=== PATIENT | female | born 2000 | race Two or more races ===

== ENCOUNTER 2019-10-31 18:00 | Inpatient (IN) | payer MEDICAID ==
[~2019-10-31] VITALS: Ht 152.4 cm; Wt 45.5 kg
--- NOTE | 2019-10-31 18:09 | NUR ---
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
--- NOTE | 2019-10-31 18:36 | NUR ---
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
[2019-10-31] MEDS ORDERED: AMIT50TA PO (18:45)
--- NOTE | 2019-10-31 18:45 | NUR ---
PATIENT COMES IN TODAY WITH HER MOTHER FOR CYCLICAL VOMITING THAT STARTED 10 DAYS AGO. PATIENT WAS ADMITTED TO [facility] AND DISHCARGED 2 DAYS AGO WITH NO RELIEF. PATIENT IS ACTIVELY DRY HEAVING DURING ASSESSMENT, MOTHER IS ANSWERING ALL QUESTIONS.
[2019-10-31] MEDS ORDERED: SODIUM CHLORIDE 0.9% 1,000ML IVBOLUS ONE (19:30)
[2019-10-31] MEDS ORDERED: ONDANSETRON 2MG/ML, 2ML IVPush ONE (19:30)
[2019-10-31] MEDS ORDERED: KETOROLAC 30 MG/1 ML IVPush ONE (19:30)
[2019-10-31] MEDS ORDERED: SODIUM CHLORIDE FLUSH 10ML SYR IVF ONE (19:30)
[2019-10-31] MEDS ORDERED: ONDA4TAB7 PO (19:31)
[2019-10-31] MEDS ORDERED: PROM12.554 PR (19:31)
[2019-10-31] MEDS ORDERED: KETOROLAC 30 MG/1 ML ONE (19:47)
[2019-10-31] MEDS ORDERED: ONDANSETRON 2MG/ML, 2ML ONE (19:47)
[2019-10-31 19:55] LABS: BASOPHILS # (AUTO) 0.01 x10^3/uL (0-0.1); BASOPHILS % (AUTO) 0 % (0-1); EOSINOPHILS % (AUTO) 0 % (1-7); LYMPHOCYTES # (AUTO) 1.49 x10^3/uL (1-3.4); LYMPHOCYTES % (AUTO) 10 % (22-44); MD NO; MEAN CORPUSCULAR HEMOGLOBIN 32.1 pg (27.0-34.8); MEAN CORPUSCULAR HGB CONC 33.2 g/dL (32.4-35.8); MEAN CORPUSCULAR VOLUME 96.6 fL (80-100); MEAN PLATELET VOLUME 7.7 fL (7.4-10.4); MONOCYTES % (AUTO) 4 % (2-9); NEUTROPHILS # (AUTO) 12.55 x10^3/uL (1.8-6.8); NEUTROPHILS % (AUTO) 86 % (42-75); PLATELET COUNT 317 x10^3/uL (130-400); RED BLOOD COUNT 4.58 x10^6/uL (3.82-5.3); RED CELL DISTRIBUTION WIDTH 13.4 % (9.6-15.2)
--- NOTE | 2019-10-31 19:56 | NUR ---
PT ROLLING AROUND ON GURNEY IN PAIN, MOTHER AT BEDSIDE. PT SCREAMING FOR MEDS. IV FLUIDS STARTED AND PT MEDICATED PER EMAR. VSS AND WILL CONT TO MONITOR.
[2019-10-31 19:59] LABS: ALANINE AMINOTRANSFERASE 19 U/L (12-78); ALBUMIN 4.6 g/dL (3.4-5.0); ANION GAP 10 mmol/L (5-15); CALCIUM 9.3 mg/dL (8.5-10.1); CHLORIDE 106 mmol/L (98-107); CREATININE 0.92 mg/dL (0.55-1.02)
[2019-10-31 20:03] LABS: ALKALINE PHOSPHATASE 93 U/L (45-117); BILIRUBIN,TOTAL 0.3 mg/dL (0.2-1.0); TOTAL PROTEIN 8.7 g/dL (6.4-8.2)
--- NOTE | 2019-10-31 21:14 | NUR ---
PT PROVIDED WATER FOR PO CHALLENGE, PT YELLING AT RN "I NEED MORE MEDS", "I'M GOING TO [facility], THEY ARE FASTER". PT AND MOTHER ASKING FOR PT TO BE ADMITTED. PT AND MOTHER INFORMED THAT PT CHART IS UP FOR RECHECK AND INSTRUCTED PT ON PO CHALLENGE.
[2019-10-31] MEDS ORDERED: DIAZEPAM 5 MG/ML, 2ML IV ONE (21:19)
[2019-10-31] MEDS ORDERED: DIAZEPAM 5 MG/ML, 2ML ONE (21:25)
[2019-10-31] MEDS ORDERED: PROMETHAZINE 25 MG/ML, 1ML IM ONE (23:30)
[2019-10-31] MEDS: LORazepam 2 MG/ML, 1ML IVPush PRN (23:58)
[2019-10-31] MEDS: KETOROLAC 30 MG/1 ML IVPush PRN (23:58)
[2019-11-01] MEDS ORDERED: ONDANSETRON 2MG/ML, 2ML IVPush PRN
[2019-11-01] MEDS: LACTATED RINGERS 1,000 ML IV SCH ×3 (00:15→23:11)
[2019-11-01] MEDS: KETOROLAC 30 MG/1 ML IVPush PRN ×3 (05:44→18:25)
[2019-11-01 08:43] VITALS: BP 101/65
[2019-11-01 14:43] VITALS: BP 115/76
[2019-11-01] MEDS: LORazepam 2 MG/ML, 1ML IVPush PRN (18:25)
[2019-11-01 19:11] VITALS: BP 117/77
[2019-11-01] MEDS: AMITRIPTYLINE 50 MG TABLET PO SCH (20:08)
[2019-11-02 00:09] VITALS: BP 116/75
[2019-11-02] MEDS: KETOROLAC 30 MG/1 ML IVPush PRN ×2 (00:53→18:37)
[2019-11-02] MEDS: LORazepam 2 MG/ML, 1ML IVPush PRN ×2 (00:59→16:59)
[2019-11-02 04:47] LABS: BASOPHILS % (AUTO) 0 % (0-1); MD NO; PLATELET COUNT 221 x10^3/uL (130-400)
[2019-11-02 04:53] LABS: BASOPHILS # (AUTO) 0.02 x10^3/uL (0-0.1); EOSINOPHILS % (AUTO) 2 % (1-7); LYMPHOCYTES # (AUTO) 2.91 x10^3/uL (1-3.4); LYMPHOCYTES % (AUTO) 45 % (22-44); MEAN CORPUSCULAR HEMOGLOBIN 31.9 pg (27.0-34.8); MEAN CORPUSCULAR HGB CONC 32.8 g/dL (32.4-35.8); MEAN CORPUSCULAR VOLUME 97.3 fL (80-100); MEAN PLATELET VOLUME 7.4 fL (7.4-10.4); MONOCYTES # (AUTO) 0.53 x10^3/uL (0.2-0.8); MONOCYTES % (AUTO) 8 % (2-9); NEUTROPHILS # (AUTO) 2.87 x10^3/uL (1.8-6.8); NEUTROPHILS % (AUTO) 45 % (42-75); RED BLOOD COUNT 3.54 x10^6/uL (3.82-5.3); RED CELL DISTRIBUTION WIDTH 13.5 % (9.6-15.2)
[2019-11-02 04:59] LABS: ALBUMIN 3.2 g/dL (3.4-5.0); ANION GAP 6 mmol/L (5-15); CHLORIDE 112 mmol/L (98-107)
[2019-11-02 05:02] LABS: ALANINE AMINOTRANSFERASE 13 U/L (12-78); ALKALINE PHOSPHATASE 68 U/L (45-117); BILIRUBIN,TOTAL 0.4 mg/dL (0.2-1.0); CREATININE 0.58 mg/dL (0.55-1.02); TOTAL PROTEIN 6.1 g/dL (6.4-8.2)
[2019-11-02 05:06] LABS: C-REACTIVE PROTEIN, QUANT < 0.02 mg/dL (0.02-0.49)
[2019-11-02 06:00] LABS: HCT (SEDRATE) 34.4 % (34.6-47.8)
[2019-11-02 09:17] VITALS: BP 134/89
[2019-11-02] MEDS: LACTATED RINGERS 1,000 ML IV SCH (12:09)
[2019-11-02 15:27] VITALS: BP 129/89
[2019-11-02 19:27] VITALS: BP 125/96
[2019-11-02] MEDS: AMITRIPTYLINE 50 MG TABLET PO SCH (20:09)
[2019-11-03 00:12] VITALS: BP 114/77
[2019-11-03] MEDS: LACTATED RINGERS 1,000 ML IV SCH (00:45)
[2019-11-03] MEDS: KETOROLAC 30 MG/1 ML IVPush PRN (02:49)
[2019-11-03] MEDS: LORazepam 2 MG/ML, 1ML IVPush PRN (04:21)
[2019-11-03 05:01] LABS: BASOPHILS # (AUTO) 0.02 x10^3/uL (0-0.1); BASOPHILS % (AUTO) 0 % (0-1); EOSINOPHILS # (AUTO) 0.06 x10^3/uL (0-0.4); EOSINOPHILS % (AUTO) 1 % (1-7); LYMPHOCYTES # (AUTO) 2.58 x10^3/uL (1-3.4); LYMPHOCYTES % (AUTO) 45 % (22-44); MD NO; MEAN CORPUSCULAR HEMOGLOBIN 31.6 pg (27.0-34.8); MEAN CORPUSCULAR HGB CONC 32.8 g/dL (32.4-35.8); MEAN CORPUSCULAR VOLUME 96.2 fL (80-100); MEAN PLATELET VOLUME 7.5 fL (7.4-10.4); MONOCYTES # (AUTO) 0.41 x10^3/uL (0.2-0.8); MONOCYTES % (AUTO) 7 % (2-9); NEUTROPHILS # (AUTO) 2.64 x10^3/uL (1.8-6.8); NEUTROPHILS % (AUTO) 46 % (42-75); PLATELET COUNT 237 x10^3/uL (130-400); RED BLOOD COUNT 3.85 x10^6/uL (3.82-5.3); RED CELL DISTRIBUTION WIDTH 12.9 % (9.6-15.2)
[2019-11-03 05:09] LABS: ANION GAP 7 mmol/L (5-15); CALCIUM 9.1 mg/dL (8.5-10.1); CHLORIDE 110 mmol/L (98-107); CREATININE 0.69 mg/dL (0.55-1.02)
[2019-11-03 06:52] VITALS: BP 145/97
[2019-11-03 13:04] VITALS: BP 132/89
== END 2019-11-03 15:55 | disposition home or self-care (01) | DRG 395 ==
LOC: ED 20:41 → EDIP 21:28 → 3N 22:38 → DCLOUNGE 11-03 15:47
PROVIDERS: ADMIT Family Medicine; ATTEND Hospitalist
DX: R11.15 Cyclical vomiting syndrome unrelated to migraine (principal); K58.9 Irritable bowel syndrome, unspecified; F12.90 Cannabis use, unspecified, uncomplicated; G89.4 Chronic pain syndrome; N28.9 Disorder of kidney and ureter, unspecified; R45.1 Restlessness and agitation; Z88.8 Allergy status to other drugs, medicaments and biological substances
CPT/HCPCS: 36415; 74018; 80048; 80053; 83690; 84703; 85025; 85651; 86140; 96372; 99285; G0378; J1885; J2405; J2550; J3360; J2060; J7030; J7120